=== PATIENT | female | born 1940 | race Caucasian/White ===

== ENCOUNTER 2024-01-08 16:37 | Emergency (ER) | payer MEDICARE, MEDICAID ==
[~2024-01-08] VITALS: Ht 157.5 cm; Wt 65.9 kg
[~2024-01-08 16:37] MED LIST: ACET-1008 PO; ADAL40PE5 SQ; AMLO5TAB16 PO; APIX5TAB3 PO; DENO60DI SUBCUT; HYDR-3717 PO; HYDR-3964 PO; LEVO125T68 PO
[2024-01-08 21:04] LABS: PROTHROMBIN TIME 11.2 SECONDS (9.0-12.0)
[2024-01-08 21:08] LABS: HEMOGLOBIN 10.3 g/dl (12.0-16.0); MEAN CORPUSCULAR HEMOGLOBIN 28.5 PG (27.0-31.0); MEAN CORPUSCULAR HGB CONC 33.6 g/dL (33.0-36.5); PLATELET COUNT 207 X10'3 (140-440); RED BLOOD COUNT 3.61 X10'6 (4.20-5.60)
[2024-01-08 21:15] LABS: ALANINE AMINOTRANSFERASE 24 U/L (12-78); ALBUMIN 3.5 G/DL (3.4-5.0); ALBUMIN/GLOBULIN RATIO 0.9 (1.1-1.5); ALKALINE PHOSPHATASE 77 IU/L (46-116); ANION GAP 10 (8-16); ASPARTATE AMINO TRANSFERASE 25 U/L (10-37); BILIRUBIN,TOTAL 0.5 MG/DL (0.1-1.0); BLOOD UREA NITROGEN 19 MG/DL (7-18); BUN/CREATININE RATIO 21.8 (10.0-20.0); CALCIUM 8.8 MG/DL (8.5-10.1); CHLORIDE 94 MMOL/L (99-107); CREATININE 0.87 MG/DL (0.40-0.90); GLUCOSE 98 MG/DL (70-104); POTASSIUM 3.3 MMOL/L (3.5-5.1); SODIUM 128 MMOL/L (135-145); TOTAL CARBON DIOXIDE 23.9 MMOL/L (24-32); TOTAL PROTEIN 7.4 G/DL (6.4-8.2); eCRCL 39 ML/MIN; eGFR 62 ML/MIN
[2024-01-08 21:20] LABS: BASOPHILS % (AUTO) 0.5 % (0-1); EOSINOPHILS # (AUTO) 0.1 X10'3 (0-0.9); EOSINOPHILS % (AUTO) 1.2 % (0-6); HEMATOCRIT 30.6 % (35.0-45.0); LYMPHOCYTES # (AUTO) 2.2 X10'3 (1.1-4.8); LYMPHOCYTES % (AUTO) 25.2 % (21-51); MEAN CORPUSCULAR VOLUME 84.9 FL (78-98); MEAN PLATELET VOLUME 8.1 FL (7.4-10.4); MONOCYTES # (AUTO) 0.8 X10'3 (0-0.9); MONOCYTES % (AUTO) 9.8 % (2-12); NEUTROPHILS # (AUTO) 5.4 X10'3 (1.8-7.7); NEUTROPHILS % (AUTO) 63.3 % (42-75); RED CELL DISTRIBUTION WIDTH 14.9 % (11.5-14.5); WHITE BLOOD COUNT 8.5 X10'3 (4.5-11.0)
[2024-01-08] MEDS: acetaminophen 325mg tablet PO ONE (22:11)
[2024-01-08] MEDS: sodium chloride 1gm tablet PO ONE (22:12)
[2024-01-08] MEDS: potassium Cl 20 mEq SR tablet PO STA (22:12)
[2024-01-08 22:21] LABS: BILIRUBIN,URINE NEGATIVE (Neg); CLARITY,URINE CLEAR (Clear); COLOR,URINE STRAW (Yellow); GLUCOSE, URINE NEGATIVE (Neg); KETONES,URINE TRACE mg/dl (Neg); LEUKOCYTE ESTERASE ,URINE NEGATIVE (Neg); NITRITES, URINE NEGATIVE (Neg); OCCULT BLOOD,URINE TRACE-INTACT (Neg); PROTEIN,URINE NEGATIVE (Neg); UROBILINOGEN,URINE 0.2 E.U/dL (0.2-1.0)
[2024-01-08 22:27] LABS: UA COLLECTION TYPE URINAL
[2024-01-08 22:29] LABS: SQUAMOUS EPITHELIAL CELL,UR MODERATE /LPF (FEW); TRANSITIONAL EPI CELLS,URINE FEW /HPF
[2024-01-08 22:30] LABS: BACTERIA,URINE FEW /HPF (Neg); RBC,URINE 0-2 /HPF (0-2)
[2024-01-09 01:52] VITALS: BP 120/70; PULSE 68; RESP 15; TEMP 97.9; O2SAT 98
== END 2024-01-09 01:53 | disposition home or self-care (01) ==
LOC: ER 16:38
DX: M25.561 Pain in right knee (principal); E87.8 Other disorders of electrolyte and fluid balance, not elsewhere classified; M54.50 Low back pain, unspecified; R42 Dizziness and giddiness; Z79.899 Other long term (current) drug therapy
CPT/HCPCS: 36415; 70450; 72100; 72125; 73564; 80053; 81001; 84484; 85025; 85610; 87088; 93005; 99285

== ENCOUNTER 2025-02-25 08:14 | Outpatient (CLI) | payer MEDICARE, MEDICAID ==
[~2025-02-25 08:14] MED LIST changes: -ACET-1008 PO; -HYDR-3717 PO; -HYDR-3964 PO
--- NOTE | 2025-02-25 11:05 | RADIOLOGY REPORT ---
INDICATION: SIADH TECHNIQUE: Multiple real-time sonographic images of the kidneys and bladder were obtained. COMPARISON: None FINDINGS: The right kidney measures 11 cm in length, which is normal in size. There is normal echogen icity of the right kidney. No hydronephrosis. The left kidney measures 9 cm in length, which is normal in size. There is normal echogenicity of the left kidney. No hydronephrosis. No large intraluminal masses are seen in the bladder. Prior to voiding the bladder volume measures vo lume 42 cc. Following voiding, the bladder volume residual measures 9 cc. IMPRESSION: 1. Normal sonographic appearance of the kidneys. No hydronephrosis.
== END 2025-02-25 23:59 | disposition home or self-care (01) ==
LOC: US 08:14
PROVIDERS: ATTEND Physician Assistant
DX: E22.2 Syndrome of inappropriate secretion of antidiuretic hormone (principal)
CPT/HCPCS: 76770